=== PATIENT | female | born 1945 | race Caucasian/White ===

== ENCOUNTER 2021-03-30 07:50 | Inpatient (IN) | payer MEDICARE, OTHER ==
[~2021-03-30] VITALS: Ht 160 cm; Wt 68.3 kg
[~2021-03-30 07:50] MED LIST: ALLEGRA ALLERGY60 MG PO; CALCIUM 500+D1 EACH PO; CINNAMON500 MG PO; CRANBERRY500 M1 PO; CRESTOR10 MG PO; D3 PO; EVISTA60 MG PO; FISH OIL 1,0001 EAC2 PO; FLONASE; HYDROCHLOROTH12.5 MG PO; LOSARTAN POTASS25 MG PO; NIACIN500 M2 PO; PANTOPRAZOLE SO40 MG PO
[2021-03-30] MEDS ORDERED: Morphine 4mg Syringe 4 MG/ML INJ IV ONE (08:17)
[2021-03-30] MEDS ORDERED: KETOROLAC TROMETHAMINE 30 MG/ML VIAL IV ONE (08:17)
[2021-03-30] MEDS ORDERED: LACTATED RINGER'S 1,000 ML INJ ONE (08:30)
[2021-03-30] MEDS ORDERED: Vancomycin IV 1 GM in SODIUM CHLORIDE 0.9% 250ML 250 ML IV SCH (08:30)
[2021-03-30 09:10] LABS: BASOPHILS # (AUTO) 0.1 (0.0-0.1); BASOPHILS % 0.3 % (0.0-1.0); EOSINOPHILS # (AUTO) 0.1 (0.0-0.4); EOSINOPHILS % 0.3 % (0.0-6.0); HEMATOCRIT 34.8 % (34.2-44.1); HEMOGLOBIN 12.5 g/dL (12.0-16.0); LYMPHOCYTES # (AUTO) 1.2 (1.0-3.2); LYMPHOCYTES % 4.8 % (18.0-39.1); MEAN CORPUSCULAR HEMOGLOBIN 30.3 pg (28-32); MEAN CORPUSCULAR HGB CONC 35.9 g/dL (31-35); MEAN CORPUSCULAR VOLUME 84.5 fL (81-99); MONOCYTES # (AUTO) 1.5 (0.2-0.8); MONOCYTES % 5.8 % (4.4-11.3); NEUTROPHILS % 87.2 % (38.7-80.0); PLATELET COUNT 315 x10e3/uL (140-360); RED BLOOD COUNT 4.12 x10e6/uL (3.6-5.1); RED CELL DISTRIBUTION WIDTH 12.1 % (11.7-14.4)
[2021-03-30] MEDS ORDERED: CEFTRIAXONE 1 GM VIAL ONE (09:25)
[2021-03-30] MEDS: CEFTRIAXONE 1 GM in SODIUM CHLORIDE 0.9% 50ML 50 ML IV SCH (09:26)
[2021-03-30 09:41] LABS: ALBUMIN 2.7 g/dL (3.5-5.0); ALBUMIN/GLOBULIN RATIO 0.6 (0.8-2.0); ANION GAP 17.2 mmol/L (8-16); CREATININE, SERUM 0.68 mg/dL (0.57-1.11); POTASSIUM 4.2 mmol/L (3.5-5.1)
[2021-03-30] MEDS ORDERED: SODIUM CHLORIDE 0.9% 1000ML 1,000 ML IV SCH (10:00)
[2021-03-30] MEDS ORDERED: SODIUM CHLORIDE 0.9% 1000ML 1,000 ML ONE (10:09)
[2021-03-30] MEDS ORDERED: IOPAMIDOL 370 MG/ML 200 ML INFUS..BTL INJ ONE (10:19)
[2021-03-30] MEDS ORDERED: SODIUM CHLORIDE 0.9% 50ML 50 ML ONE (10:19)
[2021-03-30] MEDS ORDERED: Morphine 2mg Syringe 2 MG/ML SYR IV PRN (12:00)
[2021-03-30 15:41] LABS: CALCIUM 7.9 mg/dL (8.4-10.2); CREATININE, SERUM 0.71 mg/dL (0.57-1.11)
[2021-03-30 16:07] VITALS: BP 134/65
[2021-03-30] MEDS: CALCIUM CARBONATE 500 MG CHEWABLE TABS PO SCH (18:35)
[2021-03-30] MEDS: ONDANSETRON HCL INJ 2MG/ML 2ML 2 MG/ML VIAL IV PRN (18:40)
[2021-03-30] MEDS: Morphine 4mg Syringe 4 MG/ML INJ IV PRN (18:40)
[2021-03-30 20:00] VITALS: BP 137/55
[2021-03-30] MEDS: LOSARTAN POTASSIUM 25 MG TAB PO SCH (21:00)
[2021-03-30] MEDS: SIMVASTATIN 40 MG TAB PO SCH (21:00)
[2021-03-31] VITALS (8 sets, daily range): BP systolic 127–139; BP diastolic 60–71
[2021-03-31 05:15] LABS: BASOPHILS # (AUTO) 0.1 (0.0-0.1); BASOPHILS % 0.3 % (0.0-1.0); EOSINOPHILS % 0.1 % (0.0-6.0); HEMATOCRIT 31.6 % (34.2-44.1); HEMOGLOBIN 10.9 g/dL (12.0-16.0); LYMPHOCYTES # (AUTO) 1.1 (1.0-3.2); LYMPHOCYTES % 5.4 % (18.0-39.1); MEAN CORPUSCULAR HEMOGLOBIN 30.4 pg (28-32); MEAN CORPUSCULAR HGB CONC 34.5 g/dL (31-35); MONOCYTES # (AUTO) 1.3 (0.2-0.8); MONOCYTES % 6.9 % (4.4-11.3); NEUTROPHILS # (AUTO) 16.6 (2.1-6.9); NEUTROPHILS % 85.9 % (38.7-80.0); PLATELET COUNT 302 x10e3/uL (140-360); RED BLOOD COUNT 3.59 x10e6/uL (3.6-5.1); RED CELL DISTRIBUTION WIDTH 12.6 % (11.7-14.4)
[2021-03-31 05:32] LABS: ANION GAP 18.2 mmol/L (8-16); CALCIUM 8.5 mg/dL (8.4-10.2); CREATININE, SERUM 0.67 mg/dL (0.57-1.11); POTASSIUM 4.2 mmol/L (3.5-5.1)
[2021-03-31] MEDS ORDERED: Vancomycin IV 500 MG ONE (06:39)
[2021-03-31] MEDS ORDERED: GENTAMICIN SULFATE 40 MG/ML 2 ML VIAL ONE (06:39)
[2021-03-31] MEDS ORDERED: FENTANYL CITRATE/PF 100MCG/2 ML INJ ONE ×2 (08:02→12:31)
[2021-03-31] MEDS: CALCIUM CARBONATE 500 MG CHEWABLE TABS PO SCH ×3 (09:00→17:00)
[2021-03-31] MEDS: LORATADINE 10 MG TAB PO SCH ×2 (09:00→09:51)
[2021-03-31] MEDS: PANTOPRAZOLE SOD 40 MG TABEC PO SCH ×2 (09:00→09:50)
[2021-03-31] MEDS: ONDANSETRON HCL INJ 2MG/ML 2ML 2 MG/ML VIAL IV PRN (09:42)
[2021-03-31] MEDS: RALOXIFENE HCL 60 MG TAB PO SCH (09:51)
[2021-03-31] MEDS ORDERED: MIDAZOLAM HCL 2 MG/2 ML VIAL ONE (12:31)
[2021-03-31] MEDS ORDERED: SEVOFLURANE INHAL SOLN 250 ML PEN BTL ONE ×3 (13:49→15:42)
[2021-03-31] MEDS ORDERED: LIDOCAINE HCL 2% LOCAL INJ 5 ML SDV VIAL INJ ONE ×3 (13:49→15:42)
[2021-03-31] MEDS ORDERED: DEXAMETHASONE SOD PHOS INJ 4 MG/ML SDV ONE ×3 (13:49→15:42)
[2021-03-31] MEDS ORDERED: ONDANSETRON HCL INJ 2MG/ML 2ML 2 MG/ML VIAL ONE ×3 (13:49→15:42)
[2021-03-31] MEDS ORDERED: PROPOFOL IV EMULSION 10 MG/ML 20 ML VIAL ONE ×3 (13:49→15:42)
[2021-03-31] MEDS ORDERED: POVIDONE IODINE 0.05% 0.05 % ML PO ONE ×3 (13:49→15:42)
[2021-03-31] MEDS ORDERED: EPHEDRINE SULFATE INJ 50 MG/ML VIAL ONE ×2 (15:08→15:42)
[2021-03-31] MEDS: CEFTRIAXONE 1 GM in SODIUM CHLORIDE 0.9% 50ML 50 ML IV SCH (18:16)
[2021-03-31] MEDS: LOSARTAN POTASSIUM 25 MG TAB PO SCH (21:53)
[2021-03-31] MEDS: SIMVASTATIN 40 MG TAB PO SCH (21:53)
[2021-03-31] MEDS: Morphine 4mg Syringe 4 MG/ML INJ IV PRN (21:53)
[2021-04-01] VITALS (8 sets, daily range): BP systolic 125–155; BP diastolic 63–70
[2021-04-01 06:41] LABS: BASOPHILS # (AUTO) 0.1 (0.0-0.1); BASOPHILS % 0.2 % (0.0-1.0); HEMATOCRIT 29.4 % (34.2-44.1); HEMOGLOBIN 10.1 g/dL (12.0-16.0); LYMPHOCYTES # (AUTO) 1.3 (1.0-3.2); LYMPHOCYTES % 5.8 % (18.0-39.1); MEAN CORPUSCULAR HEMOGLOBIN 30.5 pg (28-32); MEAN CORPUSCULAR HGB CONC 34.4 g/dL (31-35); MEAN CORPUSCULAR VOLUME 88.8 fL (81-99); MONOCYTES # (AUTO) 1.3 (0.2-0.8); MONOCYTES % 6.1 % (4.4-11.3); NEUTROPHILS # (AUTO) 18.6 (2.1-6.9); NEUTROPHILS % 85.9 % (38.7-80.0); PLATELET COUNT 340 x10e3/uL (140-360); RED BLOOD COUNT 3.31 x10e6/uL (3.6-5.1); RED CELL DISTRIBUTION WIDTH 12.7 % (11.7-14.4)
[2021-04-01 07:23] LABS: ALBUMIN 2.4 g/dL (3.5-5.0); ALBUMIN/GLOBULIN RATIO 0.7 (0.8-2.0); ANION GAP 14.2 mmol/L (8-16); CALCIUM 8.6 mg/dL (8.4-10.2); CREATININE, SERUM 0.54 mg/dL (0.57-1.11); POTASSIUM 4.2 mmol/L (3.5-5.1)
[2021-04-01] MEDS: CALCIUM CARBONATE 500 MG CHEWABLE TABS PO SCH ×3 (09:00→16:58)
[2021-04-01] MEDS: LORATADINE 10 MG TAB PO SCH ×2 (09:00→12:21)
[2021-04-01] MEDS: PANTOPRAZOLE SOD 40 MG TABEC PO SCH (12:21)
[2021-04-01] MEDS: RALOXIFENE HCL 60 MG TAB PO SCH (12:21)
[2021-04-01] MEDS: LOSARTAN POTASSIUM 25 MG TAB PO SCH (21:24)
[2021-04-01] MEDS: SIMVASTATIN 40 MG TAB PO SCH (21:25)
[2021-04-01] MEDS: HYDROCODONE/APAP 5MG-325MG TAB PO PRN (23:10)
[2021-04-02] VITALS (8 sets, daily range): BP systolic 136–151; BP diastolic 62–73
[2021-04-02] MEDS: HYDROCODONE/APAP 5MG-325MG TAB PO PRN ×2 (03:05→17:16)
[2021-04-02 06:26] LABS: BASOPHILS # (AUTO) 0.1 (0.0-0.1); BASOPHILS % 0.4 % (0.0-1.0); EOSINOPHILS # (AUTO) 0.2 (0.0-0.4); EOSINOPHILS % 1.8 % (0.0-6.0); HEMATOCRIT 30.5 % (34.2-44.1); HEMOGLOBIN 10.3 g/dL (12.0-16.0); LYMPHOCYTES % 15.5 % (18.0-39.1); MEAN CORPUSCULAR HEMOGLOBIN 30.3 pg (28-32); MEAN CORPUSCULAR HGB CONC 33.8 g/dL (31-35); MEAN CORPUSCULAR VOLUME 89.7 fL (81-99); MONOCYTES # (AUTO) 0.9 (0.2-0.8); MONOCYTES % 6.7 % (4.4-11.3); NEUTROPHILS # (AUTO) 9.3 (2.1-6.9); NEUTROPHILS % 71.8 % (38.7-80.0); PLATELET COUNT 343 x10e3/uL (140-360); RED CELL DISTRIBUTION WIDTH 12.9 % (11.7-14.4)
[2021-04-02 06:49] LABS: ANION GAP 15.8 mmol/L (8-16); CALCIUM 8.7 mg/dL (8.4-10.2); CREATININE, SERUM 0.61 mg/dL (0.57-1.11); POTASSIUM 3.8 mmol/L (3.5-5.1)
[2021-04-02] MEDS ORDERED: Vancomycin IV 0.75 GM in SODIUM CHLORIDE 0.9% 250ML 250 ML IV SCH (07:30)
[2021-04-02] MEDS: CALCIUM CARBONATE 500 MG CHEWABLE TABS PO SCH ×2 (08:12→15:37)
[2021-04-02] MEDS: LORATADINE 10 MG TAB PO SCH (08:12)
[2021-04-02] MEDS: RALOXIFENE HCL 60 MG TAB PO SCH (09:00)
[2021-04-02] MEDS: PANTOPRAZOLE SOD 40 MG TABEC PO SCH (09:00)
[2021-04-02] MEDS ORDERED: SODIUM CHLORIDE 0.9% 100 ML ONE (09:14)
[2021-04-02] MEDS ORDERED: Vancomycin IV 750 MG in SODIUM CHLORIDE 0.9% 100 ML 150 ML IV SCH (20:00)
[2021-04-02] MEDS: LOSARTAN POTASSIUM 25 MG TAB PO SCH (20:28)
[2021-04-02] MEDS: SIMVASTATIN 40 MG TAB PO SCH (20:28)
[2021-04-03] VITALS (8 sets, daily range): BP systolic 136–146; BP diastolic 66–75
[2021-04-03 05:05] LABS: BASOPHILS # (AUTO) 0.1 (0.0-0.1); BASOPHILS % 0.5 % (0.0-1.0); EOSINOPHILS # (AUTO) 0.4 (0.0-0.4); EOSINOPHILS % 3.5 % (0.0-6.0); HEMATOCRIT 31.7 % (34.2-44.1); HEMOGLOBIN 10.6 g/dL (12.0-16.0); LYMPHOCYTES # (AUTO) 1.9 (1.0-3.2); LYMPHOCYTES % 17.9 % (18.0-39.1); MEAN CORPUSCULAR HEMOGLOBIN 29.9 pg (28-32); MEAN CORPUSCULAR HGB CONC 33.4 g/dL (31-35); MEAN CORPUSCULAR VOLUME 89.5 fL (81-99); MONOCYTES # (AUTO) 0.8 (0.2-0.8); MONOCYTES % 7.2 % (4.4-11.3); NEUTROPHILS # (AUTO) 6.8 (2.1-6.9); NEUTROPHILS % 65.1 % (38.7-80.0); PLATELET COUNT 324 x10e3/uL (140-360); RED BLOOD COUNT 3.54 x10e6/uL (3.6-5.1); RED CELL DISTRIBUTION WIDTH 12.5 % (11.7-14.4)
[2021-04-03 05:21] LABS: ALBUMIN 2.5 g/dL (3.5-5.0); ALBUMIN/GLOBULIN RATIO 0.7 (0.8-2.0); ANION GAP 14.3 mmol/L (8-16); CREATININE, SERUM 0.62 mg/dL (0.57-1.11); POTASSIUM 4.3 mmol/L (3.5-5.1)
[2021-04-03] MEDS: PANTOPRAZOLE SOD 40 MG TABEC PO SCH (09:00)
[2021-04-03] MEDS: LORATADINE 10 MG TAB PO SCH (09:00)
[2021-04-03] MEDS: RALOXIFENE HCL 60 MG TAB PO SCH (09:00)
[2021-04-03] MEDS: CALCIUM CARBONATE 500 MG CHEWABLE TABS PO SCH ×2 (09:00→17:00)
[2021-04-03] MEDS ORDERED: DIPHENHYDRAMINE HCL 25 MG CAP PO ONE (10:15)
[2021-04-03] MEDS: LINEZOLID 600 MG/D5W 300ML 300 ML IV SCH (12:15)
[2021-04-03] MEDS: DIPHENHYDRAMINE HCL 25 MG CAP PO PRN (16:16)
[2021-04-03] MEDS: SIMVASTATIN 40 MG TAB PO SCH (20:15)
[2021-04-03] MEDS: LOSARTAN POTASSIUM 25 MG TAB PO SCH (20:15)
[2021-04-03] MEDS: HYDROCODONE/APAP 5MG-325MG TAB PO PRN ×2 (20:24→21:25)
[2021-04-04 00:56] VITALS: BP 122/64
[2021-04-04] MEDS: LINEZOLID 600 MG/D5W 300ML 300 ML IV SCH ×2 (01:07→11:57)
[2021-04-04 05:51] VITALS: BP 130/72
[2021-04-04 07:44] VITALS: BP 135/63
[2021-04-04] MEDS: PANTOPRAZOLE SOD 40 MG TABEC PO SCH (09:00)
[2021-04-04] MEDS: LORATADINE 10 MG TAB PO SCH (09:00)
[2021-04-04] MEDS: CALCIUM CARBONATE 500 MG CHEWABLE TABS PO SCH ×2 (09:00→11:58)
[2021-04-04] MEDS: RALOXIFENE HCL 60 MG TAB PO SCH (09:00)
[2021-04-04 11:09] VITALS: BP 137/67
[2021-04-04] MEDS ORDERED: FENTANYL CITRATE/PF 100MCG/2 ML INJ ONE (12:48)
[2021-04-04] MEDS ORDERED: Vancomycin IV 1,000 MG ONE (13:44)
[2021-04-04 19:45] VITALS: BP 131/69
[2021-04-04] MEDS: LOSARTAN POTASSIUM 25 MG TAB PO SCH (20:50)
[2021-04-04] MEDS: SIMVASTATIN 40 MG TAB PO SCH (20:50)
[2021-04-04 20:56] VITALS: BP 133/87
[2021-04-05] VITALS (8 sets, daily range): BP systolic 115–126; BP diastolic 54–65
[2021-04-05] MEDS: LINEZOLID 600 MG/D5W 300ML 300 ML IV SCH ×2 (00:15→13:21)
[2021-04-05] MEDS: DIPHENHYDRAMINE HCL 25 MG CAP PO PRN ×2 (09:04→14:53)
[2021-04-05] MEDS: LORATADINE 10 MG TAB PO SCH (09:04)
[2021-04-05] MEDS: CALCIUM CARBONATE 500 MG CHEWABLE TABS PO SCH ×2 (09:05→16:34)
[2021-04-05] MEDS: RALOXIFENE HCL 60 MG TAB PO SCH (09:05)
[2021-04-05] MEDS: PANTOPRAZOLE SOD 40 MG TABEC PO SCH (09:05)
[2021-04-05] MEDS: SIMVASTATIN 40 MG TAB PO SCH (22:28)
[2021-04-05] MEDS: LOSARTAN POTASSIUM 25 MG TAB PO SCH (22:28)
[2021-04-05] MEDS: HYDROCODONE/APAP 5MG-325MG TAB PO PRN (22:29)
[2021-04-06] VITALS (8 sets, daily range): BP systolic 100–136; BP diastolic 49–64
[2021-04-06] MEDS: CALCIUM CARBONATE 500 MG CHEWABLE TABS PO SCH ×2 (09:00→16:28)
[2021-04-06] MEDS: LORATADINE 10 MG TAB PO SCH (09:22)
[2021-04-06] MEDS: RALOXIFENE HCL 60 MG TAB PO SCH (09:22)
[2021-04-06] MEDS: PANTOPRAZOLE SOD 40 MG TABEC PO SCH (09:23)
[2021-04-06] MEDS: DAPTOMYCIN 500mg 10ML 500 MG in SODIUM CHLORIDE 0.9% 100 ML IV SCH (10:30)
[2021-04-06] MEDS: SIMVASTATIN 40 MG TAB PO SCH (21:11)
[2021-04-06] MEDS: HYDROCODONE/APAP 5MG-325MG TAB PO PRN (21:11)
[2021-04-06] MEDS: LOSARTAN POTASSIUM 25 MG TAB PO SCH (21:19)
[2021-04-07] VITALS (8 sets, daily range): BP systolic 119–133; BP diastolic 55–68
[2021-04-07 05:29] LABS: BASOPHILS % 0.3 % (0.0-1.0); EOSINOPHILS # (AUTO) 0.4 (0.0-0.4); EOSINOPHILS % 5.1 % (0.0-6.0); HEMATOCRIT 32.2 % (34.2-44.1); HEMOGLOBIN 10.6 g/dL (12.0-16.0); LYMPHOCYTES # (AUTO) 1.9 (1.0-3.2); LYMPHOCYTES % 27.8 % (18.0-39.1); MEAN CORPUSCULAR HEMOGLOBIN 29.5 pg (28-32); MEAN CORPUSCULAR HGB CONC 32.9 g/dL (31-35); MEAN CORPUSCULAR VOLUME 89.7 fL (81-99); MONOCYTES # (AUTO) 0.7 (0.2-0.8); MONOCYTES % 10.1 % (4.4-11.3); NEUTROPHILS # (AUTO) 3.7 (2.1-6.9); PLATELET COUNT 320 x10e3/uL (140-360); RED BLOOD COUNT 3.59 x10e6/uL (3.6-5.1); RED CELL DISTRIBUTION WIDTH 12.5 % (11.7-14.4)
[2021-04-07 06:01] LABS: ANION GAP 15.7 mmol/L (8-16); CALCIUM 9.1 mg/dL (8.4-10.2); CREATININE, SERUM 0.67 mg/dL (0.57-1.11); POTASSIUM 4.7 mmol/L (3.5-5.1)
[2021-04-07] MEDS: CALCIUM CARBONATE 500 MG CHEWABLE TABS PO SCH ×2 (09:00→16:08)
[2021-04-07] MEDS: LORATADINE 10 MG TAB PO SCH (09:00)
[2021-04-07] MEDS: DAPTOMYCIN 500mg 10ML 500 MG in SODIUM CHLORIDE 0.9% 100 ML IV SCH (10:53)
[2021-04-07] MEDS ORDERED: Vancomycin IV 1 GM VIAL ONE (13:43)
[2021-04-07] MEDS ORDERED: FENTANYL CITRATE/PF 100MCG/2 ML INJ ONE (13:44)
[2021-04-07] MEDS: HYDROCODONE/APAP 5MG-325MG TAB PO PRN ×2 (16:05→21:07)
[2021-04-07] MEDS: PANTOPRAZOLE SOD 40 MG TABEC PO SCH (16:08)
[2021-04-07] MEDS: RALOXIFENE HCL 60 MG TAB PO SCH (16:08)
[2021-04-07] MEDS: LOSARTAN POTASSIUM 25 MG TAB PO SCH (20:50)
[2021-04-07] MEDS: SIMVASTATIN 40 MG TAB PO SCH (20:56)
[2021-04-08] VITALS (7 sets, daily range): BP systolic 110–137; BP diastolic 56–62
[2021-04-08] MEDS: LORATADINE 10 MG TAB PO SCH (09:21)
[2021-04-08] MEDS: RALOXIFENE HCL 60 MG TAB PO SCH (09:22)
[2021-04-08] MEDS: CALCIUM CARBONATE 500 MG CHEWABLE TABS PO SCH ×2 (09:22→16:54)
[2021-04-08] MEDS: PANTOPRAZOLE SOD 40 MG TABEC PO SCH (11:10)
[2021-04-08] MEDS: DAPTOMYCIN 500mg 10ML 500 MG in SODIUM CHLORIDE 0.9% 100 ML IV SCH (11:14)
[2021-04-08] MEDS: LOSARTAN POTASSIUM 25 MG TAB PO SCH (20:44)
[2021-04-08] MEDS: SIMVASTATIN 40 MG TAB PO SCH (20:44)
[2021-04-09 04:00] VITALS: BP 115/60
[2021-04-09 08:05] VITALS: BP 126/73
[2021-04-09] MEDS: PANTOPRAZOLE SOD 40 MG TABEC PO SCH (08:49)
[2021-04-09] MEDS: RALOXIFENE HCL 60 MG TAB PO SCH (08:49)
[2021-04-09] MEDS: DAPTOMYCIN 500mg 10ML 500 MG in SODIUM CHLORIDE 0.9% 100 ML IV SCH (08:49)
[2021-04-09] MEDS: LORATADINE 10 MG TAB PO SCH (09:00)
[2021-04-09] MEDS: CALCIUM CARBONATE 500 MG CHEWABLE TABS PO SCH ×2 (09:00→15:49)
[2021-04-09 09:21] VITALS: BP 126/73
[2021-04-09 12:47] VITALS: BP 129/58
[2021-04-09 18:06] VITALS: BP 127/68
[2021-04-09 20:00] VITALS: BP 133/63
[2021-04-09] MEDS: SIMVASTATIN 40 MG TAB PO SCH (21:52)
[2021-04-09] MEDS: LOSARTAN POTASSIUM 25 MG TAB PO SCH (21:53)
[2021-04-10] VITALS (9 sets, daily range): BP systolic 112–146; BP diastolic 55–68
[2021-04-10] MEDS ORDERED: SODIUM CHLORIDE 0.9% 250ML 250 ML ONE (07:32)
[2021-04-10] MEDS: CALCIUM CARBONATE 500 MG CHEWABLE TABS PO SCH ×2 (08:48→17:00)
[2021-04-10] MEDS: LORATADINE 10 MG TAB PO SCH (08:48)
[2021-04-10] MEDS: RALOXIFENE HCL 60 MG TAB PO SCH (09:04)
[2021-04-10] MEDS: PANTOPRAZOLE SOD 40 MG TABEC PO SCH (09:04)
[2021-04-10] MEDS: DAPTOMYCIN 500mg 10ML 500 MG in SODIUM CHLORIDE 0.9% 100 ML IV SCH (09:05)
[2021-04-10] MEDS: SIMVASTATIN 40 MG TAB PO SCH (21:00)
[2021-04-10] MEDS: LOSARTAN POTASSIUM 25 MG TAB PO SCH (21:00)
[2021-04-11] VITALS (7 sets, daily range): BP systolic 108–139; BP diastolic 60–68
[2021-04-11] MEDS: CALCIUM CARBONATE 500 MG CHEWABLE TABS PO SCH ×2 (09:00→16:32)
[2021-04-11] MEDS: LORATADINE 10 MG TAB PO SCH (09:00)
[2021-04-11] MEDS: RALOXIFENE HCL 60 MG TAB PO SCH (09:39)
[2021-04-11] MEDS: PANTOPRAZOLE SOD 40 MG TABEC PO SCH (09:39)
[2021-04-11] MEDS: DAPTOMYCIN 500mg 10ML 500 MG in SODIUM CHLORIDE 0.9% 100 ML IV SCH (09:40)
[2021-04-11] MEDS: LOSARTAN POTASSIUM 25 MG TAB PO SCH (20:34)
[2021-04-11] MEDS: SIMVASTATIN 40 MG TAB PO SCH (20:34)
[2021-04-12] VITALS (8 sets, daily range): BP systolic 103–139; BP diastolic 55–69
[2021-04-12] MEDS: RALOXIFENE HCL 60 MG TAB PO SCH (08:50)
[2021-04-12] MEDS: PANTOPRAZOLE SOD 40 MG TABEC PO SCH (08:50)
[2021-04-12] MEDS: CALCIUM CARBONATE 500 MG CHEWABLE TABS PO SCH ×2 (09:00→15:22)
[2021-04-12] MEDS: LORATADINE 10 MG TAB PO SCH (09:00)
[2021-04-12] MEDS: DAPTOMYCIN 500mg 10ML 500 MG in SODIUM CHLORIDE 0.9% 100 ML IV SCH (10:30)
[2021-04-12] MEDS: LOSARTAN POTASSIUM 25 MG TAB PO SCH (20:40)
[2021-04-12] MEDS: SIMVASTATIN 40 MG TAB PO SCH (20:50)
[2021-04-13] VITALS: BP 101/77
[2021-04-13 04:00] VITALS: BP 112/55
[2021-04-13 08:33] VITALS: BP 129/64
[2021-04-13 09:00] VITALS: BP 129/64
[2021-04-13] MEDS: CALCIUM CARBONATE 500 MG CHEWABLE TABS PO SCH ×2 (09:00→17:00)
[2021-04-13] MEDS: LORATADINE 10 MG TAB PO SCH (09:00)
[2021-04-13] MEDS: PANTOPRAZOLE SOD 40 MG TABEC PO SCH (09:00)
[2021-04-13] MEDS: RALOXIFENE HCL 60 MG TAB PO SCH (09:00)
[2021-04-13] MEDS: DAPTOMYCIN 500mg 10ML 500 MG in SODIUM CHLORIDE 0.9% 100 ML IV SCH (09:38)
[2021-04-13 12:07] VITALS: BP 130/66
[2021-04-13 16:55] VITALS: BP 113/64
[2021-04-13] MEDS ORDERED: ONDANSETRON HCL 4 MG ORAL DISINTEGRATING TAB PO PRN (18:15)
== END 2021-04-13 18:10 | disposition home health service (06) | DRG 854 ==
LOC: ER 08:10 → ERHOLD 08:29 → MED/SURG2 16:30 → OBSVTOIN 03-31 09:45
PROC: 0JBN0ZZ Excision of Right Lower Leg Subcutaneous Tissue and Fascia, Open Approach (ICD-10-PCS; 2021-03-31)
PROC: 06H033Z Insertion of Infusion Device into Inferior Vena Cava, Percutaneous Approach (ICD-10-PCS; principal; 2021-04-11)
DX: A41.9 Sepsis, unspecified organism (principal); M00.062 Staphylococcal arthritis, left knee; L03.116 Cellulitis of left lower limb; E87.1 Hypo-osmolality and hyponatremia; M71.162 Other infective bursitis, left knee; I10 Essential (primary) hypertension; Z20.822 Contact with and (suspected) exposure to COVID-19; M71.062 Abscess of bursa, left knee; B95.62 Methicillin resistant Staphylococcus aureus infection as the cause of diseases classified elsewhere; E78.5 Hyperlipidemia, unspecified; T36.8X5A Adverse effect of other systemic antibiotics, initial encounter; L27.1 Localized skin eruption due to drugs and medicaments taken internally; D64.9 Anemia, unspecified; K21.9 Gastro-esophageal reflux disease without esophagitis
CPT/HCPCS: 36415; 36569; 71045; 80048; 80053; 83605; 85025; 87040; 87071; 87075; 87186; 87205; 99251; 99284; G0378; J0696; J1100; J1580; J1885; J2001; J2020; J2250; J2270; J2405; J3010; J3370; J7030; J7050; J7121; Q9967; U0002

== ENCOUNTER → 2022-05-16 | Outpatient (CLI) | payer MEDICARE | LOC: US 07:47 | PROVIDERS: ATTEND Family Medicine | DX: E04.9 Nontoxic goiter, unspecified (principal) | CPT/HCPCS: 76536 ==

== ENCOUNTER → 2022-06-13 | Outpatient (CLI) | payer MEDICARE | LOC: US 09:09 | PROVIDERS: ATTEND Family Medicine | DX: E04.1 Nontoxic single thyroid nodule (principal) | CPT/HCPCS: 10005; 88172; 88173; 88300; 88305 ==

== ENCOUNTER → 2024-08-17 | Outpatient (REF) | payer MEDICARE ==
[~2024-08-17] MED LIST changes: +CEFDINIR300 MG PO; +ONDANSETRON ODT4 MG SL; +XOFLUZA80 MG PO
== END ==
LOC: US 09:48
PROVIDERS: ATTEND Internal Medicine
DX: C73 Malignant neoplasm of thyroid gland (principal)
CPT/HCPCS: 76536

== ENCOUNTER → 2024-09-25 | Outpatient (REF) | payer MEDICARE | LOC: DX 12:15 | PROVIDERS: ATTEND Internal Medicine | DX: Z13.820 Encounter for screening for osteoporosis (principal) | CPT/HCPCS: 77080 ==